=== PATIENT | female | born 1955 | race Caucasian/White ===

== ENCOUNTER → 2025-03-05 | Outpatient (CLI) | payer MEDICARE, SELFPAY ==
[2025-03-05 09:51] LABS: Basophils # (Auto) 0.1 Thou/mm3 (0.0-0.2); Basophils % (Auto) 1 % (0-2.5); Eosinophils # (Auto) 0.1 Thou/mm3 (0.0-0.5); Eosinophils % (Auto) 2 % (0-10); Hematocrit 36.3 % (36.0-46.0); Hemoglobin 12.2 g/dL (12.0-16.0); Immature Granulocytes Auto 0.01 Thou/mm3 (0.00-0.00); Lymphocytes # (Auto) 1.8 Thou/mm3 (1.0-4.8); Lymphocytes % (Auto) 29 % (10-50); Mean Corpuscular HGB Conc 33.6 g/dl (31.0-37.0); Mean Corpuscular Hemoglobin 27.9 pg (25.0-35.0); Mean Corpuscular Volume 83 fL (80-100); Monocytes # (Auto) 0.5 Thou/mm3 (0.0-0.8); Monocytes % (Auto) 8 % (0-12); Neutrophils # (Auto) 3.6 Thou/mm3 (1.8-7.7); Neutrophils % (Auto) 60 % (37-80); Nucleated Red Blood Cell # 0.00 Thou/mm3 (0.00-0.00); Nucleated Red Blood Cell % 0 /100 WBC (0); Platelet Count 269 Thou/mm3 (140-440); RDW Standard Deviation 39.6 fL (36.4-46.3); Red Blood Count 4.37 Miln/mm3 (4.00-5.20); White Blood Count 6.0 Thou/mm3 (3.6-11.0)
[2025-03-05 09:57] LABS: Iron 59 mcg/dL (50-170)
[2025-03-05 10:05] LABS: Carcinoembryonic Antigen 6.7 ng/mL (0.0-5.0); Vitamin B12 769 pg/mL (211-911); Vitamin D 25 Hydroxy Total 40.2 ng/mL (7.3-40.2)
[2025-03-05 10:11] LABS: Alanine Aminotransferase 12 U/L (10-49); Albumin, Serum 4.8 gm/dL (3.4-4.8); Albumin/Globulin Ratio 1.6 (1.2-2.2); Alkaline Phosphatase 91 U/L (46-116); Anion Gap 13 (7-16); Aspartate Amino Transferase 15 U/L (0-34); BUN/Creatinine Ratio 16 Ratio (12-20); Bilirubin,Total 0.3 mg/dL (0.3-1.2); Blood Urea Nitrogen 16 mg/dL (9-23); Calcium 10.4 mg/dL (8.3-10.6); Calcium (Corrected) 10.4 mg/dL (8.5-10.1); Carbon Dioxide 27.4 mMol/L (20.0-31.0); Chloride 101 mMol/L (98-107); Creatinine (Component) 1.0 mg/dL (0.6-1.3); Globulin 3.0 gm/dL (2.3-3.5); Glucose 85 mg/dL (74-106); Magnesium 2.0 mg/dL (1.6-2.6); Osmolality,Calculated 281 (275-295); Phosphorous 3.5 mg/dL (2.4-5.1); Potassium 3.8 mMol/L (3.4-5.1); Sodium 141 mMol/L (136-145); Total Protein 7.8 gm/dL (5.7-8.2); eGFR > 60 See Note
[2025-03-05 10:59] LABS: Sed Rate (ESR) 39 mm/hr (0-30)
[2025-03-09 06:29] LABS: T3,Total* 101 ng/dL (76-181)
== END | disposition home or self-care (01) ==
PROVIDERS: PCP Internal Medicine; Referring Provider Internal Medicine; Visit Provider Internal Medicine
DX: C64.1 Malignant neoplasm of right kidney, except renal pelvis (principal); E89.0 Postprocedural hypothyroidism; M35.3 Polymyalgia rheumatica; R05.3 Chronic cough
CPT/HCPCS: 36415; 80053; 82306; 82378; 82607; 83540; 83735; 84100; 84480; 85025; 85652

== ENCOUNTER → 2025-06-09 | Outpatient (CLI) | payer MEDICARE, SELFPAY ==
[2025-06-09 10:14] LABS: Basophils # (Auto) 0.1 Thou/mm3 (0.0-0.2); Basophils % (Auto) 1 % (0-2.5); Eosinophils # (Auto) 0.1 Thou/mm3 (0.0-0.5); Eosinophils % (Auto) 1 % (0-10); Hematocrit 35.3 % (36.0-46.0); Hemoglobin 11.6 g/dL (12.0-16.0); Immature Granulocytes Auto 0.02 Thou/mm3 (0.00-0.00); Lymphocytes # (Auto) 1.5 Thou/mm3 (1.0-4.8); Lymphocytes % (Auto) 27 % (10-50); Mean Corpuscular HGB Conc 32.9 g/dl (31.0-37.0); Mean Corpuscular Hemoglobin 27.6 pg (25.0-35.0); Mean Corpuscular Volume 84 fL (80-100); Monocytes # (Auto) 0.4 Thou/mm3 (0.0-0.8); Monocytes % (Auto) 8 % (0-12); Neutrophils # (Auto) 3.4 Thou/mm3 (1.8-7.7); Neutrophils % (Auto) 63 % (37-80); Nucleated Red Blood Cell # 0.00 Thou/mm3 (0.00-0.00); Nucleated Red Blood Cell % 0 /100 WBC (0); Platelet Count 269 Thou/mm3 (140-440); RDW Standard Deviation 39.4 fL (36.4-46.3); Red Blood Count 4.21 Miln/mm3 (4.00-5.20); White Blood Count 5.4 Thou/mm3 (3.6-11.0)
[2025-06-09 10:35] LABS: Alanine Aminotransferase 17 U/L (10-49); Albumin, Serum 4.7 gm/dL (3.4-4.8); Albumin/Globulin Ratio 1.8 (1.2-2.2); Alkaline Phosphatase 85 U/L (46-116); Anion Gap 12 (7-16); Aspartate Amino Transferase 19 U/L (0-34); BUN/Creatinine Ratio 15 Ratio (12-20); Bilirubin,Total 0.4 mg/dL (0.3-1.2); Blood Urea Nitrogen 16 mg/dL (9-23); Calcium 9.6 mg/dL (8.3-10.6); Calcium (Corrected) 9.6 mg/dL (8.5-10.1); Carbon Dioxide 28.5 mMol/L (20.0-31.0); Chloride 103 mMol/L (98-107); Creatinine (Component) 1.1 mg/dL (0.6-1.3); Globulin 2.6 gm/dL (2.3-3.5); Glucose 91 mg/dL (74-106); Magnesium 1.8 mg/dL (1.6-2.6); Osmolality,Calculated 286 (275-295); Phosphorous 3.9 mg/dL (2.4-5.1); Potassium 3.7 mMol/L (3.4-5.1); Sodium 143 mMol/L (136-145); Thyroid Stimulating Hormone 1.58 uIU/mL (0.55-4.78); Total Protein 7.3 gm/dL (5.7-8.2); eGFR 54 See Note
[2025-06-09 10:44] LABS: Vitamin B12 771 pg/mL (211-911); Vitamin D 25 Hydroxy Total 35.6 ng/mL (7.3-40.2)
[2025-06-09 10:53] LABS: Sed Rate (ESR) 18 mm/hr (0-30)
[2025-06-09 10:56] LABS: Iron 59 mcg/dL (50-170); Percent Iron Saturation 17 % (20-55); Total Iron Binding Capacity 335 mcg/dL (250-425); Unsaturated Iron Binding 276 (225-295)
[2025-06-14 07:05] LABS: T3,Total* 88 ng/dL (76-181)
== END | disposition home or self-care (01) ==
LOC: COPL 08:17
PROVIDERS: PCP Internal Medicine; Referring Provider Internal Medicine; Visit Provider Internal Medicine
DX: D50.9 Iron deficiency anemia, unspecified (principal); R53.83 Other fatigue; M79.7 Fibromyalgia; E03.9 Hypothyroidism, unspecified; M35.3 Polymyalgia rheumatica
CPT/HCPCS: 36415; 80053; 82306; 82607; 83540; 83550; 83735; 84100; 84443; 84480; 85025; 85652

== ENCOUNTER → 2025-06-16 | Outpatient (CLI) | payer MEDICARE, SELFPAY ==
--- NOTE | 2025-06-16 14:30 | XR_ITS ---
EXAMINATION: Thyroid sonography complete TECHNIQUE: Grayscale sonographic images thyroid lobes Date and time: June 16, 2025, 1425 hours, comparison August 14, 2022 INDICATIONS: Thyroid sonogram August 14, 2022 upper pole right thyroid nodules 4 mm, 6 mm midpole nodule 3 mm FINDINGS: Right thyroid 4.7 cm Upper pole nodules 5 x 3 mm 6 x 6 mm Mid pole nodule 3 x 3 mm Lower pole nodule 3 x 4 mm Absent left thyroid IMPRESSION: Small thyroid nodules as above, consider continued 6-month follow-up thyroid sonography
== END | disposition home or self-care (01) ==
PROVIDERS: PCP Nurse Practitioner Family; Referring Provider Nurse Practitioner Family; Visit Provider Nurse Practitioner Family
DX: E04.2 Nontoxic multinodular goiter (principal)
CPT/HCPCS: 76536